=== PATIENT | male | born 1980 | race Caucasian/White ===

== ENCOUNTER 2020-02-09 16:28 | Emergency (ER) | payer MEDICAID, OTHER ==
[~2020-02-09] VITALS: Ht 172.7 cm; Wt 113.4 kg
[2020-02-09 17:46] VITALS: BP 113/59
== END 2020-02-09 17:54 | disposition home or self-care (01) ==
LOC: ER 16:28
DX: S39.012A Strain of muscle, fascia and tendon of lower back, initial encounter (principal); S16.1XXA Strain of muscle, fascia and tendon at neck level, initial encounter; V43.52XA Car driver injured in collision with other type car in traffic accident, initial encounter; Y93.89 Activity, other specified; Y92.488 Other paved roadways as the place of occurrence of the external cause; Y99.8 Other external cause status
CPT/HCPCS: 72040; 72070

== ENCOUNTER 2020-06-22 21:22 | Emergency (ER) | payer MEDICAID ==
[~2020-06-22] VITALS: Ht 172.7 cm; Wt 99.8 kg
[2020-06-22 22:13] LABS: Basophils # (auto) 0.1 10 ^3/uL (0-0.2); Basophils % (auto) 0.4 % (0.0-2.0); Eosinophils # (auto) 0 10 ^3/uL (0-0.8); Eosinophils % (auto) 0.1 % (0.0-7.0); Hematocrit 48.6 % (41.0-53.0); Hemoglobin 16.2 g/dL (13.5-17.5); Lymphocytes # (auto) 1.4 10 ^3/uL (0.4-5.4); Lymphocytes % (auto) 8.9 % (10.0-50.0); Mean Corpuscular Hemoglobin 28.8 pg (28.0-32.0); Mean Corpuscular Hgb Conc. 33.3 g/dL (32.0-36.0); Mean Corpuscular Volume 86.4 fL (80.0-100.0); Monocytes # (auto) 0.8 10 ^3/uL (0-1.3); Neutrophils # (auto) 13.6 10 ^3/uL (1.6-8.6); Neutrophils % (auto) 85.6 % (37.0-80.0); Platelet Count (auto) 368 10^3/uL (140-450); Red Blood Cells 5.62 10^6/uL (4.5-5.90); Red Cell Distribution Width 12.8 % (11.8-14.3); White Blood Cell 15.9 10^3/uL (4.4-10.8)
[2020-06-22 22:30] LABS: Albumin 4.3 g/dL (3.4-5.0); Anion Gap 9 (5-15); Blood Urea Nitrogen 13 mg/dL (7-18); Calcium 9.5 mg/dL (8.5-10.1); Carbon Dioxide 23 mmol/L (21-32); Chloride 106 mmol/L (98-107); Glucose 91 mg/dL (74-106); Potassium 3.8 mmol/L (3.5-5.1); Sodium 138 mmol/L (136-145)
[2020-06-22 22:32] LABS: Alanine Aminotransferase 40 U/L (16-61); GFR African American 108 mL/min; GFR Non-African American 89 mL/min
[2020-06-22 22:37] LABS: Alkaline Phosphatase 61 U/L (45-117); Aspartate Aminotransferase 22 U/L (15-37); Bilirubin, Total 0.8 mg/dL (0.2-1.0); Total Protein 7.9 g/dL (6.4-8.2)
[2020-06-22 23:00] LABS: INR 1.04 (0.9-1.15); Partial Thromboplastin Time 26.8 sec (23.0-31.2)
[2020-06-23 01:30] VITALS: BP 101/63
== END 2020-06-23 01:31 | disposition home or self-care (01) ==
LOC: EDUNIT# 21:22 → EDBD 21:22 → ER 21:24
DX: R07.9 Chest pain, unspecified (principal)
CPT/HCPCS: 36415; 71045; 80053; 83880; 84484; 85025; 85379; 85610; 85730; 93005

== ENCOUNTER → 2023-06-18 | Emergency (ER) | payer MEDICAID ==
[~2023-06-18] VITALS: Ht 172.7 cm; Wt 118.0 kg
[~2023-06-18] MED LIST: HYDROcodone-ACET 10/325MG TAB PO ONE; IBUP-1456 PO; KETOROLAC TROMETH 60MG/2ML VIAL IM ONE; METH-1182 PO
[2023-06-18 14:51] VITALS: BP 122/71; PULSE 73; RESP 18; O2SAT 98
== END | disposition home or self-care (01) ==
LOC: ER 14:06
DX: M54.50 Low back pain, unspecified (principal); M62.838 Other muscle spasm; E78.5 Hyperlipidemia, unspecified; I10 Essential (primary) hypertension
CPT/HCPCS: 72100; 96372; 99283; J1885

== ENCOUNTER 2024-05-25 08:27 | Emergency (ER) | payer MEDICAID ==
[~2024-05-25] VITALS: Ht 172.7 cm; Wt 122.7 kg
[~2024-05-25 08:27] MED LIST changes: -HYDROcodone-ACET 10/325MG TAB PO ONE; -KETOROLAC TROMETH 60MG/2ML VIAL IM ONE
[2024-05-25 09:09] VITALS: BP 110/67; PULSE 72; RESP 20; TEMP 97.8; O2SAT 95
[2024-05-25] MEDS: HYDROcodone-ACET 10/325MG TAB PO ONE (09:49)
[2024-05-25] MEDS ORDERED: MELO7.5T7 PO (10:08)
[2024-05-25] MEDS ORDERED: LIDO5DIS21 TOP (10:08)
== END 2024-05-25 10:17 | disposition home or self-care (01) ==
LOC: ER 08:27
DX: M54.50 Low back pain, unspecified (principal); E78.5 Hyperlipidemia, unspecified; I10 Essential (primary) hypertension
CPT/HCPCS: 72131